=== PATIENT | female | born 1990 | race Caucasian/White ===

== ENCOUNTER 2020-10-18 10:51 | Outpatient (CLI) | payer MEDICAID ==
[~2020-10-18 10:51] MED LIST: NO HOME MEDS
== END 2020-10-18 23:59 | disposition home or self-care (01) ==
LOC: VAS 10:51
PROVIDERS: ATTEND Family Medicine
DX: M79.661 Pain in right lower leg (principal)
CPT/HCPCS: 93971

== ENCOUNTER 2023-01-07 15:57 | Emergency (ER) | payer MEDICAID ==
[~2023-01-07] VITALS: Ht 162.6 cm; Wt 67.0 kg
[2023-01-07 16:00] VITALS: BP 155/101
[2023-01-07] MEDS ORDERED: PANT-47 PO (17:07)
== END 2023-01-07 18:02 | disposition home or self-care (01) ==
LOC: ER 15:59
DX: K30 Functional dyspepsia (principal); K21.9 Gastro-esophageal reflux disease without esophagitis; G89.29 Other chronic pain; M54.9 Dorsalgia, unspecified
CPT/HCPCS: 99283

== ENCOUNTER 2024-09-25 09:36 | Outpatient (CLI) | payer MEDICAID ==
[~2024-09-25 09:36] MED LIST changes: +PANT-47 PO
[2024-09-25 10:25] LABS: BASOPHILS % (AUTO) 0.7 % (0-1); EOSINOPHILS % (AUTO) 0.7 % (0-6); HEMATOCRIT 40.4 % (35.0-45.0); HEMOGLOBIN 13.7 g/dl (12.0-16.0); LYMPHOCYTES # (AUTO) 1.7 X10'3 (1.1-4.8); LYMPHOCYTES % (AUTO) 29.8 % (21-51); MEAN CORPUSCULAR HEMOGLOBIN 30.2 PG (27.0-31.0); MEAN CORPUSCULAR HGB CONC 33.9 g/dL (33.0-36.5); MEAN CORPUSCULAR VOLUME 89.1 FL (78-98); MEAN PLATELET VOLUME 9.4 FL (7.4-10.4); MONOCYTES # (AUTO) 0.4 X10'3 (0-0.9); MONOCYTES % (AUTO) 6.8 % (2-12); NEUTROPHILS # (AUTO) 3.6 X10'3 (1.8-7.7); PLATELET COUNT 190 X10'3 (140-440); RED BLOOD COUNT 4.53 X10'6 (4.20-5.60); WHITE BLOOD COUNT 5.8 X10'3 (4.5-11.0)
[2024-09-25 10:40] LABS: HEMOGLOBIN A1C 5.3 % (4.5-6.2)
[2024-09-25 10:58] LABS: ALANINE AMINOTRANSFERASE 23 U/L (12-78); ALBUMIN 3.7 G/DL (3.4-5.0); ALKALINE PHOSPHATASE 53 IU/L (46-116); ANION GAP 7 (8-16); ASPARTATE AMINO TRANSFERASE 14 U/L (10-37); BILIRUBIN,TOTAL 0.5 MG/DL (0.1-1.0); BLOOD UREA NITROGEN 11 MG/DL (7-18); BUN/CREATININE RATIO 14.9 (10.0-20.0); CALCIUM 8.6 MG/DL (8.5-10.1); CHLORIDE 102 MMOL/L (99-107); CREATININE 0.74 MG/DL (0.40-0.90); FREE T4 (FREE THYROXINE) 0.89 NG/DL (0.73-1.40); GLUCOSE 110 MG/DL (70-104); POTASSIUM 3.7 MMOL/L (3.5-5.1); SODIUM 137 MMOL/L (135-145); THYROID STIMULATING HORMONE 0.87 ulU/ml (0.34-4.50); TOTAL CARBON DIOXIDE 28.4 MMOL/L (24-32); TOTAL PROTEIN 7.3 G/DL (6.4-8.2); eGFR 89 ML/MIN
[2024-09-26 13:19] LABS: ANTINUCLEAR ANTIBODIES Positive (Negative)
[2024-09-27 05:26] LABS: FOLATE SERUM(FOLIC) 10.6 ng/mL (>3.0)
== END 2024-09-25 23:59 | disposition home or self-care (01) ==
LOC: LAB 09:36
PROVIDERS: ATTEND Nurse Practitioner
DX: M06.4 Inflammatory polyarthropathy (principal); R73.9 Hyperglycemia, unspecified; R52 Pain, unspecified
CPT/HCPCS: 36415; 80053; 82306; 82607; 82746; 82785; 83036; 84439; 84443; 85025; 85651; 86003; 86038; 86140